=== PATIENT | male | born 1970 | race Caucasian/White ===

== ENCOUNTER 2023-09-19 14:23 | Emergency (ER) | payer OTHER, BC ==
[2023-09-19 14:42] VITALS: BP 138/91; PULSE 75; RESP 18; TEMP 97.8; BMI 24.7
[2023-09-19 15:32] LABS: HEMATOCRIT 45.9 % (35.4-49); HEMOGLOBIN 15.1 G/dL (11.7-16.9); MCH 31.1 pg (25.7-33.7); MCHC 32.9 g/dl (32.0-35.9); MEAN CELL VOLUME 94.7 fl (80-96); MEAN PLT VOLUME 7.7 fl (7.5-11.1); RBC 4.85 10^6/uL (4.00-5.60); RDW 13.4 % (11.9-15.9); WHITE BLOOD COUNT 6.8 10^3/uL (4.0-10.8)
[2023-09-19 15:41] LABS: PLATELET ESTIMATE ADEQUATE
[2023-09-19 16:00] LABS: ALBUMIN 4.2 g/dl (3.4-5.0); BILIRUBIN,TOTAL 0.5 mg/dl (0.2-1); CALCIUM 9.2 mg/dl (8.5-10.1); CREATININE 0.8 mg/dl (0.6-1.3); POTASSIUM 3.9 mmol/L (3.5-5.1); TOT PROT 6.7 g/dl (6.4-8.2); URIC ACID 6.8 mg/dl (2.6-7.2)
== END 2023-09-19 16:45 | disposition home or self-care (01) ==
LOC: FER 14:23
DX: R22.41 Localized swelling, mass and lump, right lower limb (principal); S83.91XA Sprain of unspecified site of right knee, initial encounter; X50.9XXA Other and unspecified overexertion or strenuous movements or postures, initial encounter
CPT/HCPCS: 36415; 73562-TC-RT-FY; 80053; 84550; 85027; 85651; 99284-25